=== PATIENT | female | born 1950 | race Caucasian/White ===

== ENCOUNTER 2019-07-15 18:07 | Emergency (ER) | payer OTHER ==
--- NOTE | 2019-07-15 19:10 | RAD REPORT ---
EXAM DESCRIPTION: RAD - Chest Single View - 07/15/2019 7:05 pm CLINICAL HISTORY: SOB Chest pain. COMPARISON: CHEST PA AND LAT 2 VIEW dated 11/17/2014; CHEST SINGLE VIEW dated 11/09/2014; CHEST SINGLE VIEW dated 11/08/2014; CHEST SINGLE VIEW dated 09/02/2013 FINDINGS: Portable technique limits examination quality. The lungs are grossly clear. The heart is upper limit of normal in size. No displaced fractures. IMPRESSION: No acute intrathoracic process suspected.
[2019-07-15 19:41] LABS: Absolute Lymphocytes (CBC) 2.1 K/uL (0.7-4.9); Basophils % 0.8 % (0-1.3); Lymphocytes % 33.6 % (15.3-44.8); RBC Red Blood Cell Count 4.44 M/uL (3.86-4.86)
[2019-07-15 19:47] LABS: Protime INR 0.98
[2019-07-15 20:22] LABS: ALT/SGPT 31 U/L (12-78); AST/SGOT 26 U/L (15-37); Alkaline Phosphatase 103 U/L (45-117); BUN Blood Urea Nitrogen 19 mg/dL (7-18); Bicarbonate 23 mmol/L (21-32); Bilirubin Direct 0.1 mg/dL (0-0.2); Bilirubin Total 0.5 mg/dL (0.2-1.0); Glucose Level 91 mg/dL (74-106); Magnesium 2.2 mg/dL (1.8-2.4); NT PRO-BNP 35 pg/mL (<125); Protein, Total 7.6 g/dL (6.4-8.2); Sodium Level 143 mmol/L (136-145); Troponin (Emerg Dept Use Only) < 0.02 ng/mL (0.0-0.045)
--- NOTE | 2019-07-15 20:56 | RAD REPORT ---
EXAM DESCRIPTION: CT - Head Brain Wo Cont - 07/15/2019 8:47 pm CLINICAL HISTORY: near syncope Headache, drowsiness COMPARISON: No comparisons TECHNIQUE: All CT scans are performed using dose optimization technique as appropriate and may inclu de automated exposure control or mA/KV adjustment according to patient size. FINDINGS: No intracranial hemorrhage, hydrocephalus or extra-axial fluid collection.No areas of brai n edema or evidence of midline shift. The paranasal sinuses and mastoids are clear. The calvarium is intact. IMPRESSION: No acute intracranial abnormality.
--- NOTE | 2019-07-15 22:00 | ER ---
Nurse's Notes [facility] Name: Juliet Glasgow Age: 68 yrs Sex: Female : 1950 Arrival Date: 07/15/2019 Time: 18:10 Bed 26 Private MD: Diagnosis: Near Syncopy, Dizziness Presentation: 07/15 18:19 Presenting complaint: Patient states: I WAS PREPARING DINNER WHEN I FELT LIKE I AM rv GOING TO PASS OUT SO I CALLED MY . HE GAVE ME WET CLOTH AND WATER TO DRINK. I THOUGHT I AM GETTING BETTER WHEN I FELT IT AGAIN. Transition of care: patient was not received from another setting of care. Onset of symptoms was July 15, 2019 at 17:00. Risk Assessment: Do you want to hurt yourself or someone else? Patient reports no desire to harm self or others. Initial Sepsis Screen: Does the patient meet any 2 criteria? No. Patient's initial sepsis screen is negative. Does the patient have a suspected source of infection? No. Patient's initial sepsis screen is negative. Care prior to arrival: None. 18:19 Method Of Arrival: Ambulatory rv 18:19 Acuity: WEI 3 rv Triage Assessment: 19:58 General: Appears in no apparent distress. comfortable, Behavior is calm, cooperative. mg2 Respiratory: the patient has mild shortness of breath. Respiratory: Onset: The symptoms/episode began/occurred gradually. Historical: - Allergies: 18:22 Codeine; rv - Home Meds: 18:22 None [Active]; rv - PMHx: 18:22 Hyperlipidemia; rv - PSHx: 18:22 Hysterectomy; Tonsillectomy; rv - Immunization history:: Adult Immunizations up to date, Flu vaccine is not up to date. - Social history:: Smoking status: Patient/guardian denies using tobacco. - Ebola Screening: : No symptoms or risks identified at this time. Screenin:57 Abuse screen: Denies threats or abuse. Denies injuries from another. Nutritional mg2 screening: No deficits noted. Tuberculosis screening: No symptoms or risk factors identified. Fall Risk IV access (20 points). Assessment: 19:56 General: Appears in no apparent distress. comfortable, Behavior is calm, cooperative. mg2 Pain: Denies pain. Neuro: Level of Consciousness is awake, alert, obeys commands, Oriented to person, place, time, situation. Neuro: Reports dizziness. Cardiovascular: Capillary refill < 3 seconds Patient's skin is warm and dry. Rhythm is sinus rhythm. Respiratory: Airway is patent Respiratory effort is even, unlabored, Respiratory pattern is regular, symmetrical, Breath sounds are clear bilaterally. in mediastinum, right upper lobe, left upper lobe, right middle lobe, left lower lobe and right lower lobe. GI: No signs and/or symptoms were reported involving the gastrointestinal system. : No signs and/or symptoms were reported regarding the genitourinary system. EENT: No signs and/or symptoms were reported regarding the EENT system. Derm: Skin is intact, is healthy with good turgor, Skin is pink, warm \T\ dry. normal. Musculoskeletal: Circulation, motion, and sensation intact. Capillary refill < 3 seconds. 21:00 Reassessment: Patient appears in no apparent distress at this time. Patient and/or mg2 family updated on plan of care and expected duration. Pain level reassessed. Patient is alert, oriented x 3, equal unlabored respirations, skin warm/dry/pink. 22:07 Reassessment: patient preferred to go home and follow-up with her hat checker as soon mg2 as possible. she said she feeling better right now. provider spoke to her too. Vital Signs: 18:21 BP 166 / 76; Pulse 68; Resp 16; Temp 98.4; Pulse Ox 99% on R/A; Weight 88.45 kg; Height rv 5 ft. 3 in. (160.02 cm); Pain 0/10; 19:55 BP 129 / 68; Pulse 73; Resp 18; Pulse Ox 99% on R/A; Pain 0/10; mg2 21:33 BP 134 / 69; Pulse 65; Resp 18; Pulse Ox 100% on R/A; mg2 22:08 BP 126 / 78; Pulse 63; Resp 18; Temp 98.5; Pulse Ox 100% on R/A; Pain 0/10; mg2 18:21 Body Mass Index 34.54 (88.45 kg, 160.02 cm) rv ED Course: 18:10 Patient arrived in ED. mr 18:21 Triage completed. rv 18:44 Erik Matos MD is Attending Physician. kdr 18:48 Vasiliy Mooney RN is Primary Nurse. mg2 19:04 XRAY Chest (1 view) In Process Unspecified. EDMS 19:39 Radiology exam delayed due to lab results not completed at this time. (BUN/Creatinine). kw1 19:46 Radiology exam delayed due to lab results not completed at this time. (BUN/Creatinine). kw1 19:55 Arm band placed on. mg2 19:57 Patient has correct armband on for positive identification. Bed in low position. Call mg2 light in reach. Side rails up X2. survey questionnaire designer on. Pulse ox on. NIBP on. 19:57 No provider procedures requiring assistance completed. Inserted saline lock: 22 gauge mg2 in right hand, using aseptic technique. Blood collected. 20:00 Radiology exam delayed due to lab results not completed at this time. (BUN/Creatinine). ga 20:30 Radiology exam delayed due to IV insertion attempt and/or patient not having vm2 appropriate IV at this time. 20:48 CT Head Brain wo Cont In Process Unspecified. EDMS 22:09 IV discontinued, intact, bleeding controlled, No redness/swelling at site. Pressure mg2 dressing applied. Administered Medications: No medications were administered Outcome: 21:59 Discharge ordered by . kdr 22:09 Discharged to home ambulatory, with family. mg2 22:09 Condition: stable 22:09 Discharge instructions given to patient, family, Instructed on discharge instructions, follow up and referral plans. Demonstrated understanding of instructions, follow-up care. 22:10 Patient left the ED. mg2 Signatures: Dispatcher [employer] EDMD Erik Matos MD MD kdr Rivera, Louisa mr Ortega, PeteMartha Rowe [facility] Rebeka Covarrubias kw1 Vasiliy Mooney, BRIAN TORRES mg2 Chandler Rudd RN RN rv
--- NOTE | 2019-07-15 22:01 | EDPHYS ---
Physician Documentation [facility] Name: Juliet Glasgow Age: 68 yrs Sex: Female : 1950 Arrival Date: 07/15/2019 Time: 18:10 Bed 26 Private MD: ED Physician Erik Matos HPI: 07/15 22:32 This 68 yrs old Female presents to ER via Ambulatory with complaints of kdr Shortness Of Breath, Dizziness. 22:33 The patient has experienced near-syncope, almost passed out, felt faint, felt generally kdr weak. Onset: The symptoms/episode began/occurred acutely, suddenly, just prior to arrival. Duration: The patient has had multiple episodes, Both were brief. Context: the episode(s) was witnessed, by family, occurred at home, occurred while the patient was standing, And preparing food for dinner. Associated injury: The patient did not suffer any apparent associated injury. Associated signs and symptoms: Pertinent positives: confusion, dizziness, lightheadedness, shortness of breath, Pertinent negatives: abdominal pain, agitation, ataxia, blurred vision, chest pain, combativeness, diaphoresis, diarrhea, headache, numbness, palpitations, seizure, tingling. Current symptoms: Currently, the patient is not experiencing any symptoms, the patient feels back to baseline, perhaps slight dizziness - patient does not want to mover helper her head. However, when she does, she is not significantly vertiginous. The patient has not experienced similar symptoms in the past. The patient has not recently seen a physician. Historical: - Allergies: 18:22 Codeine; rv - Home Meds: 18:22 None [Active]; rv - PMHx: 18:22 Hyperlipidemia; rv - PSHx: 18:22 Hysterectomy; Tonsillectomy; rv - Immunization history:: Adult Immunizations up to date, Flu vaccine is not up to date. - Social history:: Smoking status: Patient/guardian denies using tobacco. - Ebola Screening: : No symptoms or risks identified at this time. ROS: 22:33 Constitutional: Negative for fever, chills, and weight loss, Eyes: Negative for injury, kdr pain, redness, and discharge, ENT: Negative for injury, pain, and discharge, Neck: Negative for injury, pain, and swelling, Cardiovascular: Negative for chest pain, palpitations, and edema, Respiratory: Negative for shortness of breath, cough, wheezing, and pleuritic chest pain, Abdomen/GI: Negative for abdominal pain, nausea, vomiting, diarrhea, and constipation, Back: Negative for injury and pain, : Negative for injury, bleeding, discharge, and swelling, MS/Extremity: Negative for injury and deformity, Skin: Negative for injury, rash, and discoloration, Psych: Negative for depression, anxiety, suicide ideation, homicidal ideation, and hallucinations, Allergy/Immunology: Negative for hives, rash, and allergies, Endocrine: Negative for neck swelling, polydipsia, polyuria, polyphagia, and marked weight changes, Hematologic/Lymphatic: Negative for swollen nodes, abnormal bleeding, and unusual bruising. 22:33 Neuro: Positive for dizziness, near syncope, Negative for altered mental status, gait disturbance, headache, hearing loss, loss of consciousness, numbness, seizure activity, speech changes, tingling, tinnitus, tremor, visual changes. Exam: 22:33 Constitutional: This is a well developed, well nourished patient who is awake, alert, kdr and in no acute distress. Head/Face: Normocephalic, atraumatic. Eyes: Pupils equal round and reactive to light, extra-ocular motions intact. Lids and lashes normal. Conjunctiva and sclera are non-icteric and not injected. Cornea within normal limits. Periorbital areas with no swelling, redness, or edema. Neck: Trachea midline, no thyromegaly or masses palpated, and no cervical lymphadenopathy. Supple, full range of motion without nuchal rigidity, or vertebral point tenderness. No Meningismus. Chest/axilla: Normal chest wall appearance and motion. Nontender with no deformity. No lesions are appreciated. Cardiovascular: Regular rate and rhythm with a normal S1 and S2. No gallops, murmurs, or rubs. Normal PMI, no JVD. No pulse deficits. Respiratory: Lungs have equal breath sounds bilaterally, clear to auscultation and percussion. No rales, rhonchi or wheezes noted. No increased work of breathing, no retractions or nasal flaring. Abdomen/GI: Soft, non-tender, with normal bowel sounds. No distension or tympany. No guarding or rebound. No evidence of tenderness throughout. Back: No spinal tenderness. No costovertebral tenderness. Full range of motion. Skin: Warm, dry with normal turgor. Normal color with no rashes, no lesions, and no evidence of cellulitis. MS/ Extremity: Pulses equal, no cyanosis. Neurovascular intact. Full, normal range of motion. Neuro: Awake and alert, GCS 15, oriented to person, place, time, and situation. Cranial nerves II-XII grossly intact. Motor strength 5/5 in all extremities. Sensory grossly intact. Cerebellar exam normal. Normal gait. Psych: Awake, alert, with orientation to person, place and time. Behavior, mood, and affect are within normal limits. Vital Signs: 18:21 BP 166 / 76; Pulse 68; Resp 16; Temp 98.4; Pulse Ox 99% on R/A; Weight 88.45 kg; Height rv 5 ft. 3 in. (160.02 cm); Pain 0/10; 19:55 BP 129 / 68; Pulse 73; Resp 18; Pulse Ox 99% on R/A; Pain 0/10; mg2 21:33 BP 134 / 69; Pulse 65; Resp 18; Pulse Ox 100% on R/A; mg2 22:08 BP 126 / 78; Pulse 63; Resp 18; Temp 98.5; Pulse Ox 100% on R/A; Pain 0/10; mg2 18:21 Body Mass Index 34.54 (88.45 kg, 160.02 cm) rv MDM: 21:59 Patient medically screened. kdr 22:00 Data reviewed: vital signs, nurses notes. ED course: S/w patient had all kdr findings and my recommendation that she be admitted for cardiac monitoring. The patient was resistant to admission and declined offer. Stated that she felt back to normal now and would return of follow-up if she continued to have any symptoms. The patient was present and together they determined that she would rather go home and follow-up. 07/15 18:44 Order name: Basic Metabolic Panel; Complete Time: 21:10 kdr 07/15 18:44 Order name: CBC with Diff; Complete Time: 21:10 kdr 07/15 18:44 Order name: LFT's; Complete Time: 21:10 kdr 07/15 18:44 Order name: Magnesium; Complete Time: 21:10 kdr 07/15 18:44 Order name: NT PRO-BNP; Complete Time: 21:10 kdr 07/15 18:44 Order name: PT-INR; Complete Time: 21: [facility] 07/15 18:44 Order name: Troponin (emerg Dept Use Only); Complete Time: 21: [facility] 07/15 18:44 Order name: XRAY Chest (1 view); Complete Time: 21: [facility] 07/15 18:44 Order name: EKG; Complete Time: 18:45 [facility] 07/15 18:44 Order name: Cardiac monitoring; Complete Time: 19: [facility] 07/15 18:44 Order name: EKG - Nurse/Tech; Complete Time: 19:27 [facility] 07/15 18:44 Order name: IV Saline Lock; Complete Time: 19: [facility] 07/15 19:36 Order name: CT Head Brain wo Cont; Complete Time: : [facility] 07/15 18:44 Order name: Labs collected and sent; Complete Time: 19:27 [facility] 07/15 18:44 Order name: O2 Per Protocol; Complete Time: 19: [facility] 07/15 18:44 Order name: O2 Sat Monitoring; Complete Time: 19: [facility] Administered Medications: No medications were administered Disposition: 07/15/19 21:59 Discharged to Home. Impression: Near Syncopy, Dizziness. - Condition is Stable. - Discharge Instructions: Near-Syncope, [id number], Dizziness, [id number]. - Medication Reconciliation Form, Thank You Letter form. - Follow up: Private Physician; When: 2 - 3 days; Reason: If symptoms return, Further diagnostic work-up, Recheck today's complaints, Continuance of care, Re-evaluation by your physician. - Problem is new. - Symptoms are resolved. Signatures: Dispatcher [employer] EDDE Erik Matos MD MD [facility] Vasiliy Mooney RN RN mg2 Chandler Rudd RN RN rv Corrections: (The following items were deleted from the chart) 22:10 21:59 07/15/2019 21:59 Discharged to Home. Impression: Near Syncopy, Dizziness. mg2 Condition is Stable. Forms are Medication Reconciliation Form, Thank You Letter, Antibiotic Education, Prescription Opioid Use. Follow up: Private Physician; When: 2 - 3 days; Reason: If symptoms return, Further diagnostic work-up, Recheck today's complaints, Continuance of care, Re-evaluation by your physician. Problem is new. Symptoms are resolved. kdr
[2019-07-15 22:36] VITALS: O2SAT 100
[2019-07-15 22:37] VITALS: BP 126/78; TEMP 98.5
--- NOTE | 2019-07-16 07:44 | EKG ---
Test Date: 2019-07-15 Test Time: 19:22:49 [place] [employer]: MEASUREMENT RESULTS: Intervals: Rate: 62 MO: 134 QRSD: 78 QT: 426 QTc: 432 [place]: P: 70 MO: 134 QRS: 16 T: 25 INTERPRETIVE STATEMENTS: Normal sinus rhythm Cannot rule out Anterior infarct, age undetermined Abnormal ECG Compared to ECG 11/09/2014 06:04:05 Myocardial infarct finding now present ST (T wave) deviation no longer present Electronically Signed On 07-16-19 07:43:33 [facility] CONSULTANT by Paulino Marie
== END 2019-07-15 22:10 | disposition home or self-care (01) ==
LOC: ER 18:07
DX: R55 Syncope and collapse (principal); E78.5 Hyperlipidemia, unspecified; Z88.5 Allergy status to narcotic agent
CPT/HCPCS: 36415; 70450; 71045; 80048; 80076; 83735; 83880; 84484; 85025; 85610; 93005; 99284

== ENCOUNTER 2020-11-09 19:18 | Emergency (ER) | payer OTHER ==
--- OUTSIDE RECORDS SUMMARY | 2020-11-09 19:21 | XMS REPORT | Continuity of Care Document ---
:[address] [facility] t Address [address] [place] [address] Care Team Providers Name Role Phone Nurse, Pob Immunization Attending Clinician Unavailable Provider, Urgent Care Attending Clinician Unavailable Tanisha Chow Attending Clinician Doctor Unassigned, Name Attending Clinician Unavailable Cordelia SHERIDAN, L Attending Clinician James SHERIDAN CJenifer Attending Clinician Problems This patient has no known problems. Allergies, Adverse Reactions, Alerts This patient has no known allergies or adverse reactions. Medications This patient has no known medications. Procedures This patient has no known procedures. Encounters Start End Encounter Admission Attending Care Care Encounter Source Date/Time Date/Time Type Type Clinicians Facility Department ID 2020-09-24 2020-09-24 Telephone NurseSushila [id number] 00:00:00 00:00:00 Pob IZZY [id number] [facility] [id number] n [phone] [id number] 2020-09-04 2020-09-04 Urgent Provider, [facility] [id number] 12:06:47 12:26:47 Care [facility] [id number] Care [place] [id number] Professio [phone] nal [address] 2019-12-19 2019-12-19 Letter ADALGISA Chow [id number] 00:00:00 00:00:00 (Out) Rob MAGANA [id number] H[facility]PITAL [id number] 2019-12-09 2019-12-09 Patient Doctor [facility] [id number] 00:00:00 00:00:00 Secure Msg Unassigned, HEALTH [id number] [place] [facility] [id number] 2019-11-21 2019-11-21 Telephone [facility] [id number] 00:00:00 00:00:00 Bhavin [facility] [id number] Surgical [id number] Specialti [id number] [address] [place] 2019-11-19 2019-11-19 Office [facility] [id number] 14:08:31 14:44:41 Visit Bhavin [facility] [id number] Surgical [id number] Specialti [phone] [address] [place] 2019-10-15 2019-10-15 Office [place] [facility] [id number] 07:35:03 07:55:03 Visit , [place] [facility] [id number] [facility]. [facility] [id number] Results This patient has no known results.
[2020-11-09 20:31] LABS: Absolute Lymphocytes (CBC) 2.4 K/uL (0.7-4.9); Basophils % 0.8 % (0-1.3); Hematocrit 38.1 % (36.0-45.0); Lymphocytes % 30.3 % (15.3-44.8); MPV 7.3 fL (7.6-11.3)
[2020-11-09 20:33] LABS: Protime INR 1.01
--- NOTE | 2020-11-09 20:44 | RAD REPORT ---
EXAM DESCRIPTION: CT - Head Brain Wo Cont - 11/09/2020 8:27 pm CLINICAL HISTORY: Dizziness;Numbness COMPARISON: Head CT Wo Cont dated 07/15/2019 TECHNIQUE: Axial 5 mm thick images of the head were obtained without IV contrast. All CT scans are performed using dose optimization technique as appropriate and may include automated exposure control or mA/KV adjustment according to patient size. FINDINGS: No intracranial hemorrhage, mass, edema or shift of mid-line structures. No acute infarcti on changes seen. No abnormal extra-axial fluid collections. Ventricles are normal. No significant atr ophy or chronic ischemic changes evident. Mastoid air cells and visualized portions of the paranasal sinuses are clear. No acute bony findings. No significant change from comparison. IMPRESSION: Negative non-contrast CT head examination.
[2020-11-09 21:01] LABS: ALT/SGPT 27 U/L (12-78); AST/SGOT 15 U/L (15-37); Albumin 3.6 g/dL (3.4-5.0); Alkaline Phosphatase 104 U/L (45-117); BUN Blood Urea Nitrogen 23 mg/dL (7-18); Bicarbonate 31 mmol/L (21-32); Bilirubin Direct 0.2 mg/dL (0-0.2); Bilirubin Total 0.5 mg/dL (0.2-1.0); Glucose Level 99 mg/dL (74-106); Magnesium 2.2 mg/dL (1.8-2.4); NT PRO-BNP 38 pg/mL (<125); Potassium 3.8 mmol/L (3.5-5.1); Protein, Total 7.1 g/dL (6.4-8.2); Sodium Level 143 mmol/L (136-145); Troponin (Emerg Dept Use Only) < 0.02 ng/mL (0.0-0.045)
--- NOTE | 2020-11-09 21:52 | ER ---
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 ll1 Throat area feels thick, painful, and tender to touch. Upper chest even feels tender to touch. Coronavirus screen: Client denies travel out of the [place] in the last 14 days. At this time, the client does not indicate any symptoms associated with coronavirus-19. Ebola Screen: Patient denies travel to an Ebola-affected area in the 21 days before illness onset. Initial Sepsis Screen: Does the patient meet any 2 criteria? No. Patient's initial sepsis screen is negative. Does the patient have a suspected source of infection? No. Patient's initial sepsis screen is negative. Risk Assessment: Do you want to hurt yourself or someone else? Patient reports no desire to harm self or others. Onset of symptoms was November 09, 2020. 19:25 Method Of Arrival: Ambulatory ll1 19:25 Acuity: WEI 3 ll1 Historical: - Allergies: 19:27 Codeine; ll1 - PMHx: 19:27 Hyperlipidemia; ll1 - PSHx: 19:27 Hysterectomy; Tonsillectomy; rotator cuff both shoulders; ll1 - Immunization history:: Flu vaccine is up to date. - Social history:: Smoking status: Patient denies any tobacco usage or history of. Screenin:45 Abuse screen: Denies threats or abuse. Denies injuries from another. Nutritional wh screening: No deficits noted. Tuberculosis screening: No symptoms or risk factors identified. VAN Screening: Arm Drift: Patient shows no arm weakness. Visual Disturbance: No visual disturbance noted. Aphasia: No aphasia noted. Neglect: No neglect noted. Patient has been NPO before screening. The patient is alert, able to follow commands. The patient does not exhibit slurred or garbled speech The patient is not exhibiting difficulty speaking. The patient does not exhibit difficulty understanding words. The patient is able to swallow own secretions with no drooling or need for suction. Patient tolerated one teaspoon of water. No drooling, immediate coughing, gurgling, or clearing of the throat was noted. The patient tolerated 90mL of water. No drooling, immediate coughing, gurgling, or clearing of the throat was noted. The patient passed the bedside swallow screening. Oral medications may be given as ordered. Contact Physician for further diet orders. Fall Risk None identified. Assessment: 19:45 General: Appears in no apparent distress. Behavior is calm, cooperative, appropriate wh for age. Pain: Denies pain. Neuro: Level of Consciousness is awake, alert, obeys commands, Oriented to person, place, time, situation, Appropriate for age Computer Numerical Control Programmer are equal bilaterally Moves all extremities. Gait is steady, Speech is normal, Facial symmetry appears normal, Numbness in face, neck and chest Reports numbness in face, neck and chest. Cardiovascular: Heart tones S1 S2 Rhythm is sinus rhythm. Respiratory: Airway is patent Respiratory effort is even, unlabored, Respiratory pattern is regular, symmetrical, Breath sounds are clear bilaterally. GI: Abdomen is flat, non-distended. : No signs and/or symptoms were reported regarding the genitourinary system. EENT: No signs and/or symptoms were reported regarding the EENT system. Derm: Skin is intact, is healthy with good turgor, Skin is pink, warm \T\ dry. normal. Musculoskeletal: Circulation, motion, and sensation intact. 21:30 Reassessment: Patient appears in no apparent distress at this time. No changes from previously documented assessment. Patient and/or family updated on plan of care and expected duration. Pain level reassessed. Patient is alert, oriented x 3, equal unlabored respirations, skin warm/dry/pink. Vital Signs: 19:25 BP 158 / 94; Pulse 79; Resp 17; Temp 98.0; Pulse Ox 99% ; Weight 88.45 kg; Height 5 ft. ll1 3 in. (160.02 cm); Pain 2/10; 20:30 BP 135 / 67; Pulse 79; Resp 18; Pulse Ox 96% on R/A; wh 21:45 BP 134 / 55; Pulse 81; Resp 18; Pulse Ox 97% on R/A; wh 19:25 Body Mass Index 34.54 (88.45 kg, 160.02 cm) ll1 NIH Stroke Scale Scores: 19:45 NIHSS Score: 0 20:33 NIHSS Score: 0 [facility] ED Course: 19:20 Patient arrived in ED. cl3 19:27 Triage completed. ll1 19:27 Arm band placed on Patient placed in an exam room, on a stretcher. ll1 19:38 Guera Castanon RN is Primary Nurse. 19:45 Javier Nielsen MD is Attending Physician. 7 19:45 Patient has correct armband on for positive identification. Placed in gown. Bed in low wh position. Call light in reach. Side rails up X 1. four slide machine operator on. Pulse ox on. NIBP on. 20:00 No provider procedures requiring assistance completed. Inserted saline lock: 20 gauge wh in right antecubital area, using aseptic technique. Blood collected. 21:54 XRAY Chest (1 view) In Process Unspecified. EDMS 22:07 IV discontinued, intact, bleeding controlled, No redness/swelling at site. wh Administered Medications: No medications were administered Outcome: 22:06 AMA AMA form signed 22:06 Condition: stable 22:06 Discharge instructions given to patient, Instructed on discharge instructions, follow up and referral plans. POC Demonstrated understanding of instructions, follow-up care, POC 22:07 Patient left the ED. NIH Stroke Scale - NIH Stroke Score Date: 11/09/2020 Time: 19:45 Total Score = 0 1a. Level of Consciousness (LOC) - 0(Alert) 1b. Level of Consciousness (LOC) (Year \T\ Age) - 0(Both) 1c. LOC Commands (Open \T\ Closes Eyes/Cooker Casing) - 0(Both) 2. Best Gaze (Lateral Gaze Paresis) - 0(Normal) 3. Visual Field Loss - 0(No visual loss) 4. Facial Palsy - 0(Normal) 5a. Left Arm: Motor (10-second hold) - 0(No drift) 5b. Right Arm: Motor (10-second hold) - 0(No drift) 6a. Left Leg: Motor (5-second hold - always test supine) - 0(No drift) 6b. Right Leg: Motor (5-second hold - always test supine) - 0(No drift) 7. Limb Ataxia (finger/nose \T\ heel/woodson - test with eyes open) - 0(Absent) 8. Sensory Loss (pinprick arms/legs/face) - 0(Normal) 9. Best Language: Aphasia (description/naming/reading) - 0(No aphasia) 10. Dysarthria (speech clarity - read or repeat words) - 0(Normal) 11. Extinction and Inattention (visual/tactile/auditory/spatial/personal) - 0(No abnormality) Initials: NIH Stroke Scale - NIH Stroke Score Date: 11/09/2020 Time: 20:33 Total Score = 0 1a. Level of Consciousness (LOC) - 0(Alert) 1b. Level of Consciousness (LOC) (Year \T\ Age) - 0(Both) 1c. LOC Commands (Open \T\ Closes Eyes/Cooker Casing) - 0(Both) 2. Best Gaze (Lateral Gaze Paresis) - 0(Normal) 3. Visual Field Loss - 0(No visual loss) 4. Facial Palsy - 0(Normal) 5a. Left Arm: Motor (10-second hold) - 0(No drift) 5b. Right Arm: Motor (10-second hold) - 0(No drift) 6a. Left Leg: Motor (5-second hold - always test supine) - 0(No drift) 6b. Right Leg: Motor (5-second hold - always test supine) - 0(No drift) 7. Limb Ataxia (finger/nose \T\ heel/woodson - test with eyes open) - 0(Absent) 8. Sensory Loss (pinprick arms/legs/face) - 0(Normal) 9. Best Language: Aphasia (description/naming/reading) - 0(No aphasia) 10. Dysarthria (speech clarity - read or repeat words) - 0(Normal) 11. Extinction and Inattention (visual/tactile/auditory/spatial/personal) - 0(No abnormality) Initials: 7 Signatures: Dispatcher [employer] Guera Whitaker RN RN Suly Nicole cl3 Ayla Nicole RN RN ll1 Javier Nielsen MD MD [facility]
--- NOTE | 2020-11-09 21:52 | EDPHYS ---
Physician Documentation [facility] Name: Juliet Glasgow Age: 70 yrs Sex: Female : 1950 Arrival Date: 11/09/2020 Time: 19:20 Bed 18 Private MD: ED Physician Javier Nielsen HPI: 11/09 20:33 This 70 yrs old Female presents to ER via Ambulatory with complaints of mh7 Numbness Of Face, Difficulty Swallowing. 20:33 The patient's problem is reported as paresthesias, in right side of face, in left side mh7 of face, syncope, dizziness, near syncope, chest pain, fullness of throat. Onset: The symptoms/episode began/occurred today, at 19:05. Duration: The episode is continuous. Context: the episode(s) was witnessed, by family, , symptoms became apparent on November 09, 2020, at 19:05. occurred at home, occurred while the patient was standing, Possible contributing factors include:. The symptoms are alleviated by nothing. The symptoms are aggravated by nothing. Associated signs and symptoms: Pertinent positives: chest pain, dizziness, lightheadedness, numbness, tingling, throat pressure sensation, Pertinent negatives: abdominal pain, agitation, ataxia, blurred vision, combativeness, confusion, diaphoresis, diarrhea, headache, nausea, palpitations, seizure, shortness of breath, vertigo, vomiting, weakness. Severity of symptoms: At their worst the symptoms were moderate just prior to arrival, today, in the emergency department the symptoms have improved markedly. Patient's baseline: Neuro: alert and fully oriented, Motor: no deficits, Ambulation: walks without assistance, Speech: normal. Patients states multiple symptoms that began simultaneously including chest pain, facial numbness to both cheeks, dizziness with lightheaded feeling as if she might pass out, throat pressure. Denies headache, abdominal pain, nausea, vomiting, weakness, visual disturbances, fever, cough.. Historical: - Allergies: 19:27 Codeine; ll1 - PMHx: 19:27 Hyperlipidemia; ll1 - PSHx: 19:27 Hysterectomy; Tonsillectomy; rotator cuff both shoulders; ll1 - Immunization history:: Flu vaccine is up to date. - Social history:: Smoking status: Patient denies any tobacco usage or history of. ROS: 20:33 Constitutional: Negative for fever, chills, and weight loss, Eyes: Negative for injury, mh7 pain, redness, and discharge, Neck: Negative for injury, pain, and swelling, Respiratory: Negative for shortness of breath, cough, wheezing, and pleuritic chest pain, Abdomen/GI: Negative for abdominal pain, nausea, vomiting, diarrhea, and constipation, Back: Negative for injury and pain, : Negative for injury, bleeding, discharge, and swelling, MS/Extremity: Negative for injury and deformity, Skin: Negative for injury, rash, and discoloration, Psych: Negative for depression, anxiety, suicide ideation, homicidal ideation, and hallucinations, Allergy/Immunology: Negative for hives, rash, and allergies, Endocrine: Negative for neck swelling, polydipsia, polyuria, polyphagia, and marked weight changes, Hematologic/Lymphatic: Negative for swollen nodes, abnormal bleeding, and unusual bruising. Exam: 20:33 Constitutional: This is a well developed, well nourished patient who is awake, alert, mh7 and in no acute distress. Head/Face: Normocephalic, atraumatic. Eyes: Pupils equal round and reactive to light, extra-ocular motions intact. Lids and lashes normal. Conjunctiva and sclera are non-icteric and not injected. Cornea within normal limits. Periorbital areas with no swelling, redness, or edema. ENT: Nares patent. No nasal discharge, no septal abnormalities noted. Tympanic membranes are normal and external auditory canals are clear. Oropharynx with no redness, swelling, or masses, exudates, or evidence of obstruction, uvula midline. Mucous membranes moist. Neck: Trachea midline, no thyromegaly or masses palpated, and no cervical lymphadenopathy. Supple, full range of motion without nuchal rigidity, or vertebral point tenderness. No Meningismus. Chest/axilla: Normal chest wall appearance and motion. Nontender with no deformity. No lesions are appreciated. Cardiovascular: Regular rate and rhythm with a normal S1 and S2. No gallops, murmurs, or rubs. Normal PMI, no JVD. No pulse deficits. Respiratory: Lungs have equal breath sounds bilaterally, clear to auscultation and percussion. No rales, rhonchi or wheezes noted. No increased work of breathing, no retractions or nasal flaring. Abdomen/GI: Soft, non-tender, with normal bowel sounds. No distension or tympany. No guarding or rebound. No evidence of tenderness throughout. Back: No spinal tenderness. No costovertebral tenderness. Full range of motion. Skin: Warm, dry with normal turgor. Normal color with no rashes, no lesions, and no evidence of cellulitis. MS/ Extremity: Pulses equal, no cyanosis. Neurovascular intact. Full, normal range of motion. Neuro: Awake and alert, GCS 15, oriented to person, place, time, and situation. Cranial nerves II-XII grossly intact. Motor strength 5/5 in all extremities. Sensory grossly intact. Cerebellar exam normal. Normal gait. Psych: Awake, alert, with orientation to person, place and time. Behavior, mood, and affect are within normal limits. 21:52 Radiologist reports: No acute findings mh7 Vital Signs: 19:25 BP 158 / 94; Pulse 79; Resp 17; Temp 98.0; Pulse Ox 99% ; Weight 88.45 kg; Height 5 ft. ll1 3 in. (160.02 cm); Pain 2/10; 20:30 BP 135 / 67; Pulse 79; Resp 18; Pulse Ox 96% on R/A; wh 21:45 BP 134 / 55; Pulse 81; Resp 18; Pulse Ox 97% on R/A; wh 19:25 Body Mass Index 34.54 (88.45 kg, 160.02 cm) ll1 NIH Stroke Scale Scores: 19:45 NIHSS Score: 0 wh 20:33 NIHSS Score: 0 7 MDM: 21:48 Differential diagnosis: CVA, TIA, metabolic disorder, drug effects, Chest pain, Near mh7 Syncope. Data reviewed: vital signs, nurses notes, lab test result(s), cardiac enzymes, CBC, electrolytes, EKG, radiologic studies, CT scan, plain films. Data interpreted: Pulse oximetry: on room air is 99 %. Interpretation: normal. Counseling: I had a detailed discussion with the patient and/or guardian regarding: the historical points, exam findings, and any diagnostic results supporting the discharge/admit diagnosis, the presence of at least one elevated blood pressure reading (>120/80) during this emergency department visit, lab results, radiology results, the need for further work-up and treatment in the hospital. Response to treatment: the patient's symptoms have resolved after treatment, the patient's blood pressure is in an acceptable range, mental status has returned to baseline, the patient no longer shows bradycardia, the patient is not short of breath, the patient is not tachycardic, the patient's pain is gone, the patient's temperature has normalized. Refusal of service: The patient/guardian displays adequate decision making capability and despite a detailed discussion of alternatives, benefits, risks, and consequences refuses: Admission to the hospital for further work-up and treatment, Medications. 21:51 Patient medically screened. [facility] 11/09 20:02 Order name: Basic Metabolic Panel [facility] 11/09 20:02 Order name: CBC with Diff [facility] 11/09 20:02 Order name: LFT's [facility] 11/09 20:02 Order name: Magnesium [facility] 11/09 20:02 Order name: NT PRO-BNP [facility] 11/09 20:02 Order name: PT-INR [facility] 11/09 20:02 Order name: Troponin (emerg Dept Use Only) [facility] 11/09 20:49 Order name: CBC with Automated Diff; Complete Time: 21:15 [facility] 11/09 20:50 Order name: Protime (+INR); Complete Time: 21:15 [facility] 11/09 21:01 Order name: Basic Metabolic Panel; Complete Time: 21:15 [facility] 11/09 21:01 Order name: Liver (Hepatic) Function; Complete Time: 21:15 [facility] 11/09 21:01 Order name: Troponin (Emerg Dept Use Only); Complete Time: 21:15 [facility] 11/09 21:01 Order name: NT PRO-BNP; Complete Time: 21:15 [facility] 11/09 21:01 Order name: Magnesium; Complete Time: 21:15 [facility] 11/09 20:02 Order name: XRAY Chest (1 view) [facility] 11/09 20:02 Order name: EKG; Complete Time: 20:03 [facility] 11/09 20:02 Order name: Cardiac monitoring; Complete Time: 20:31 [facility] 11/09 20:02 Order name: EKG - Nurse/Tech; Complete Time: 20:31 [facility] 11/09 20:02 Order name: IV Saline Lock; Complete Time: 20: [facility] 11/09 20:02 Order name: Labs collected and sent; Complete Time: 20:32 [facility] 11/09 20:02 Order name: O2 Per Protocol; Complete Time: 20:32 [facility] 11/09 20:02 Order name: O2 Sat Monitoring; Complete Time: 20:32 [facility] 11/09 20:03 Order name: CT Head Brain wo Cont [facility] 11/09 20:44 Order name: CT; Complete Time: 21:15 EDMS Administered Medications: No medications were administered Disposition: 11/09/20 21:51 Patient has left against medical advice. Impression: Chest pain, unspecified, Paresthesia of skin, Dizziness and giddiness, Pain in throat and chest. - Patients states they are going to Home. - Condition is Stable. - Discharge Instructions: Paresthesia, Nonspecific Chest Pain, [id number], Dizziness, [id number]. Follow up: Private Physician; When: 24 Hours; Reason: Worsening of condition, Recheck today's complaints, Continuance of care, Re-evaluation by your physician. - Problem is new. - Symptoms have improved. NIH Stroke Scale - NIH Stroke Score Date: 11/09/2020 Time: 19:45 Total Score = 0 1a. Level of Consciousness (LOC) - 0(Alert) 1b. Level of Consciousness (LOC) (Year \T\ Age) - 0(Both) 1c. LOC Commands (Open \T\ Closes Eyes/Workforce Consultant) - 0(Both) 2. Best Gaze (Lateral Gaze Paresis) - 0(Normal) 3. Visual Field Loss - 0(No visual loss) 4. Facial Palsy - 0(Normal) 5a. Left Arm: Motor (10-second hold) - 0(No drift) 5b. Right Arm: Motor (10-second hold) - 0(No drift) 6a. Left Leg: Motor (5-second hold - always test supine) - 0(No drift) 6b. Right Leg: Motor (5-second hold - always test supine) - 0(No drift) 7. Limb Ataxia (finger/nose \T\ heel/woodson - test with eyes open) - 0(Absent) 8. Sensory Loss (pinprick arms/legs/face) - 0(Normal) 9. Best Language: Aphasia (description/naming/reading) - 0(No aphasia) 10. Dysarthria (speech clarity - read or repeat words) - 0(Normal) 11. Extinction and Inattention (visual/tactile/auditory/spatial/personal) - 0(No abnormality) Initials: NIH Stroke Scale - NIH Stroke Score Date: 11/09/2020 Time: 20:33 Total Score = 0 1a. Level of Consciousness (LOC) - 0(Alert) 1b. Level of Consciousness (LOC) (Year \T\ Age) - 0(Both) 1c. LOC Commands (Open \T\ Closes Eyes/Workforce Consultant) - 0(Both) 2. Best Gaze (Lateral Gaze Paresis) - 0(Normal) 3. Visual Field Loss - 0(No visual loss) 4. Facial Palsy - 0(Normal) 5a. Left Arm: Motor (10-second hold) - 0(No drift) 5b. Right Arm: Motor (10-second hold) - 0(No drift) 6a. Left Leg: Motor (5-second hold - always test supine) - 0(No drift) 6b. Right Leg: Motor (5-second hold - always test supine) - 0(No drift) 7. Limb Ataxia (finger/nose \T\ heel/woodson - test with eyes open) - 0(Absent) 8. Sensory Loss (pinprick arms/legs/face) - 0(Normal) 9. Best Language: Aphasia (description/naming/reading) - 0(No aphasia) 10. Dysarthria (speech clarity - read or repeat words) - 0(Normal) 11. Extinction and Inattention (visual/tactile/auditory/spatial/personal) - 0(No abnormality) Initials: [facility] Signatures: Dispatcher [employer] EDMS Guera Castanon RN RN Ayla Nicole RN RN [facility] Javier Nielsen MD MD 7 Corrections: (The following items were deleted from the chart) 22:07 21:51 11/09/2020 21:51 Patients has left against medical advice. Impression: Chest pain, unspecified; Paresthesia of skin; Dizziness and giddiness; Pain in throat and chest. Patient states they are going to Home. Condition is Stable. Follow up: Private Physician; When: 24 Hours; Reason: Worsening of condition, Recheck today's complaints, Continuance of care, Re-evaluation by your physician. Problem is new. Symptoms have improved. [facility]
--- NOTE | 2020-11-09 22:43 | RAD REPORT ---
EXAM DESCRIPTION: RAD - Chest Single View - 11/09/2020 8:44 pm CLINICAL HISTORY: CHEST PAIN COMPARISON: Portable July 2019 TECHNIQUE: AP portable chest image was obtained 11/09/2020 8:44 pm . FINDINGS: No peripheral mass consolidation. No failure or volume overload. Interstitial pattern is s imilar to comparison. Heart and vasculature are normal. No measurable pleural effusion and no pneumot horax. No acute bony abnormality seen. No acute aortic findings suspected. IMPRESSION: No acute cardiopulmonary process. No significant change from comparison.
[2020-11-10 15:55] VITALS: TEMP 98
[2020-11-10 15:57] VITALS: BP 134/55; O2SAT 97
--- NOTE | 2020-11-11 05:16 | EKG ---
Test Date: 2020-11-09 Test Time: 20:11:38 Banana Carrier: MADELNIE MEASUREMENT RESULTS: Intervals: Rate: 83 LA: 154 QRSD: 86 QT: 372 QTc: 437 [place]: P: 67 LA: 154 QRS: 57 T: 51 INTERPRETIVE STATEMENTS: Sinus rhythm with occasional premature ventricular complexes Otherwise normal ECG Compared to ECG 07/15/2019 19:22:49 Ventricular premature complex(es) now present Myocardial infarct finding no longer present Electronically Signed On 11-11-20 05:11:48 ELEVATOR OPERATOR FREIGHT by Kalin Alonzo
== END 2020-11-09 22:07 | disposition left against medical advice (07) ==
LOC: ER 19:18
DX: R07.9 Chest pain, unspecified (principal); R42 Dizziness and giddiness; R07.0 Pain in throat; E78.5 Hyperlipidemia, unspecified; Z88.5 Allergy status to narcotic agent
CPT/HCPCS: 36415; 70450; 71045; 80048; 80076; 83735; 83880; 84484; 85025; 85610; 93005; 99284

== ENCOUNTER 2021-12-19 08:15 | Emergency (ER) | payer OTHER ==
--- OUTSIDE RECORDS SUMMARY | 2021-12-19 08:20 | XMS REPORT | Continuity of Care Document ---
:1950 Author Organization [facility] t Address [address] [place] [address] Care Team Providers Name Role Phone KAILEY Attending Clinician Unavailable CHRISTA Attending Clinician Unavailable Bill VERNON Attending Clinician Unavailable Nurse, Pob Immunization Attending Clinician Unavailable Provider, Urgent Care Attending Clinician Unavailable VALDO Attending Clinician Unavailable Tanisha Chow Attending Clinician Doctor Unassigned, Name Attending Clinician Unavailable Cordelia SHERIDAN, L Attending Clinician Troy STOREY Attending Clinician Unavailable James SHERIDAN, C. Attending Clinician Payers Payer Name Policy Type Policy Number Effective Date Expiration Date [facility] [id number] 2020 MEDICARE ADV HMO 00:00:00 [employer] MEDICARE [id number] 2018 00:00:00 Problems Condition Condition Condition Status Onset Resolution Last Treating Co mments Source Name Details Category Date Date Treatment Clinician Date No known No known Disease [facility] problems problems of Medicin e Allergies, Adverse Reactions, Alerts Allergy Allergy Status Severity Reaction(s) Onset Inactive Treating Comm ents Source Name Type Date Date Clinician CODEINE DRUG Active Hallucinates Uni vers INGREDI 10-15 ity of 00:00: [address] Codeine Propensi Active [facility] ty to 10-15 [place] adverse 00:00: of reaction 00 Medicin s to e drug NO KNOWN Drug Active [facility] ALLERGIE Class ity of S [facility] Social History Social Habit Start Date Stop Date Quantity Comments Source Sex Assigned At [facility] Smoking Status Start Date Stop Date Source Never smoker [facility] o f Medicine Medications Ordered Filled Start Stop Current Ordering Indication Dosage Frequency Signature Comments Components Source Medication Medication Date Date Medication? Clinician (SIG) Name Name ibuprofen Yes 400mg Take 400 [place] nona (MOTRIN) 2-12 mg by [place] 400 MG 14:34: mouth of tablet 32 every 6 Medicin hours as e needed for Pain. atorvastati 2019-0 Yes 40mg Take 40 mg Solo n (LIPITOR) 2-12 by mouth Marleny ege 40 MG 14:34: daily. of tablet 32 Medicin e doxycycline 2019-0 Yes 20mg Take 1 Tab [facility] (PERIOSTAT) 2-12 by mouth Marleny ege 20 MG 00:00: two times of tablet 00 daily. Medicin e Procedures Procedure Date / Time Performed Performing Clinician [facility] lj CORNEAL TOPOGRAPHY - 2019-10-15 15:30:30 [place] Ramirez [facility] - BOTH EYES C. Medicine Plan of Care Planned Activity Planned Date Details Comments Source Future Scheduled Test COLON CANCER SCREENING: [facility] COLONOSCOPY [code = Medicine COLON CANCER SCREENING: COLONOSCOPY] Future Scheduled Test MAMMOGRAM ANNUAL [code [facility] = MAMMOGRAM ANNUAL] Medicine Future Scheduled Test TETANUS SHOT (ADULT) [facility] [code = TETANUS SHOT Medicin e (ADULT)] Future Scheduled Test HEPATITIS C SCREENING [facility] [code = HEPATITIS C Medicine SCREENING] Future Scheduled Test FALL SCREEN [code = [facility] FALL SCREEN] Medicine Future Scheduled Test OSTEOPOROSIS SCREENING [facility] [code = OSTEOPOROSIS Medicin e SCREENING] Future Scheduled Test PNEUMOVAX >=65 (PPSV23) [facility] [code = PNEUMOVAX >=65 Medic ine (PPSV23)] Future Scheduled Test PREVNAR >= 65 (PCV13) [facility] [code = PREVNAR >= 65 Medici ne (PCV13)] Future Scheduled Test MEDICARE AWV (Initial) [facility] [code = MEDICARE AWV Medicin e (Initial)] Future Scheduled Test FLU VACCINE > 6 MONTHS [facility] [code = FLU VACCINE > 6 Medi cine MONTHS] Encounters Start End Encounter Admission Attending Care Care Encounter Source Date/Time Date/Time Type Type Clinicians Facility Department ID 2021-07-12 2021-07-12 Outpatient KAILEY [facility] [id number] 00:00:00 00:00:00 SILVIA 128 [facility] i 2021-07-12 2021-07-12 Outpatient KAILEY, [facility] [id number] 00:00:00 00:00:[address] SILV[address] 2020-11-25 2020-11-25 Outpatient CHRISTA, [facility] [id number] 00:00:00 00:00:00 SUMAN 784 [facility] i 2020-11-25 2020-11-25 Outpatient CHRISTA, [facility] [id number] [place] 00:00:00 00:00:00 SUMAN 872 [facility] i 2020-10-08 2020-10-08 Outpatient Meredith VERNON, [facility] [id number] Univers 09:10:00 09:10:00 AMAN [id number] [facility] 2020-10-08 2020-10-08 [facility] [id number] Univers 09:10:00 09:10:00 AMAN [facility] 2020-09-24 2020-09-24 Telephone Nurse, Sushila DIANA [id number] 00:00:00 00:00:00 Pob IZZY [id number] [facility] [id number] n [id number] [id number] 2020-09-10 2020-09-10 Outpatient [facility] [id number] Univers 08:40:00 08:40:00 [id number] [facility] 2020-09-10 2020-09-10 Outpatient Meredith VERNON [facility] [id number] Univers 08:40:00 08:40:00 AMAN [facility] 2020-09-04 2020-09-04 Urgent Provider, [facility] [id number] 12:06:47 12:26:47 Care [facility] [id number] Care [place] [id number] Professio [id number] nal [address] 2020-09-04 2020-09-04 Outpatient [facility] [id number] Univers 12:20:00 12:20:00 [id number] [facility] 2020-09-04 2020-09-04 Outpatient R VALDO [facility] [id number] Univers 12:20:00 12:20:00 ART [facility] 2019-12-19 2019-12-19 Letter ADALGISA Chow [id number] 00:00:00 00:00:00 (Out) Rob Garay IZZY [id number] HOSPITAL [id number] 2019-12-09 2019-12-09 Patient Doctor [facility] [id number] 00:00:00 00:00:00 Secure [facility] [id number] [place] [facility] [id number] [id number] 2019-11-21 2019-11-21 [facility] [id number] 00:00:00 00:00:00 [facility] [id number] Surgical [id number] Specialti [id number] es [address] [place] 2019-11-19 2019-11-19 [facility] [id number] 14:08:31 14:44:41 Visit Yaniv Simmons [place] [id number] Surgical [id number] Specialti [id number] es [address] [place] 2019-11-19 2019-11-19 [facility] [id number] [facility] 14:15:00 14:15:00 YANIV [facility] 2019-10-15 2019-10-15 Office [place] BCM [id number] 07:35:03 07:55:03 Visit , [place] AMBULATOR 350.1.13.21 C. Y [id number] [id number] 300 2019-10-15 2019-10-15 Office [place] BCM [id number] [facility] 07:35:03 07:55:03 Visit , [place] AMBULATOR [id number] [place] C. Y [id number] of [id number] [facility] sheri 300 e Results Test Description Test Time Test Comments Results Result Comments Source CORNEAL TOPOGRAPHY - OU - BOTH EYES 2019-10-15 15:30:30 Test Item Value Reference Range Interpretation Comme nts SimK Steep [place] (OS) (test code = degrees 042248) SimK [place] (OD) (test code = degrees 977023) Astigmatism (OS) (test code = 157228) Astigmatism (OD) (test code = 704262) RAMONITA (test code = RAMONITA) Right EyeFindings include normal observations. SimK [place] was 104 degrees. Astigmatism is 0.41. Left EyeFindings include normal observations. SimK [place] was 160 degrees. Astigmatism is 0.58. NotesSRI: OD:0.32; OS:0.19 [facility]
--- NOTE | 2021-12-19 09:59 | RAD REPORT ---
EXAM DESCRIPTION: RAD - Wrist Left 3 View - 12/19/2021 9:37 am CLINICAL HISTORY: Left wrist pain status post injury FINDINGS: An oblique lucency is present within the distal radius extending to the articular surface probably a minimally displaced fracture. Osteoporosis No dislocation is seen.
--- NOTE | 2021-12-19 10:08 | EDPHYS ---
Physician Documentation [facility] Name: Juliet Glasgow Age: 71 yrs Sex: Female : 1950 Arrival Date: 12/19/2021 Time: 08:17 Bed 11 Private MD: Darion Leung V ED Physician Paxton Hamm HPI: 12/19 08:34 This 71 yrs old Female presents to ER via Unassigned with complaints of Fall Injury, pm1 Wrist Injury. 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 Onset: pm1 The symptoms/episode began/occurred yesterday. Associated injuries: The patient sustained left wrist. Severity of symptoms: in the emergency department the symptoms are unchanged. The patient has not experienced similar symptoms in the past. The patient has not recently seen a physician. Patient was sitting in her car with her hand bag sitting on the left side of her vehicle. She attempted to step over her hand bag and it caused her to fall out of her car and she braced her fall with her left hand. She sustained injury to the left wrist. No headache, head injury, neck pain, LOC. Patient Abdulaziz wrap and iced her left wrist yesterday and did not come in due to . Pain and range of movement did not improve so she reported to ER today. Historical: - Allergies: 08:36 Codeine; ph - PMHx: 08:36 Hyperlipidemia; ph - Immunization history:: Adult Immunizations up to date. - Social history:: Smoking status: Patient denies any tobacco usage or history of. ROS: 08:34 Constitutional: Negative for fever, chills, and weight loss, Cardiovascular: Negative pm1 for chest pain, palpitations, and edema, Respiratory: Negative for shortness of breath, cough, wheezing, and pleuritic chest pain, Abdomen/GI: Negative for abdominal pain, nausea, vomiting, diarrhea, and constipation. 08:34 Skin: Negative for injury, rash, and discoloration, Neuro: Negative for headache, weakness, numbness, tingling, and seizure. 08:34 MS/extremity: Positive for pain, swelling, of the left wrist. 08:34 All other systems are negative. Exam: 08:34 Constitutional: This is a well developed, well nourished patient who is awake, alert, pm1 and in no acute distress. Head/Face: Normocephalic, atraumatic. 08:34 Eyes: Exam is negative for acute changes, Periorbital structures: appear normal, Extraocular movements: no acute changes, Conjunctiva: no acute changes, no injection. 08:34 ENT: Mouth: Lips: normal, moist, Oral mucosa: normal, pink and intact, moist. 08:34 Cardiovascular: Exam negative for acute changes, Rate: normal, Rhythm: regular, Pulses: no pulse deficits are appreciated. 08:34 Respiratory: Exam negative for acute changes, respiratory distress, shortness of breath. Vital Signs: 08:34 BP 127 / 53; Pulse 78; Resp 18; Temp 97.4; Pulse Ox 99% on R/A; Weight 77.11 kg; Height ph 5 ft. 3 in. (160.02 cm); 08:34 Body Mass Index 30.11 (77.11 kg, 160.02 cm) ph MDM: 08:33 ED course: Patient refused pain medications offered in the ER. Patient took tylenol and pm1 gabapentin prior to arrival and she feels that it sufficient at the moment. 08:56 Patient medically screened. pm1 10:04 Data reviewed: vital signs. Data interpreted: Pulse oximetry: on room air is 99 %. pm1 Interpretation: normal. Counseling: I had a detailed discussion with the patient and/or guardian regarding: the historical points, exam findings, and any diagnostic results supporting the discharge/admit diagnosis, radiology results, the need for outpatient follow up, for definitive care, a orthopedic surgeon, to return to the emergency department if symptoms worsen or persist or if there are any questions or concerns that arise at home. 12/19 08:33 Order name: Wrist Left (3 View) XRAY; Complete Time: 10:04 pm1 12/19 08:33 Order name: Sling; Complete Time: 10:26 pm1 12/19 10:04 Order name: Sugar Tong Forearm Splint; Complete Time: 10:26 pm1 Administered Medications: No medications were administered Disposition: 21:29 Co-signature as Attending Physician, Paxton ADLER was immediately available on-site ms3 in the Emergency Department for consultation in the care of the patient.. Disposition Summary: 12/19/21 10:07 Discharge Ordered Location: Home pm1 Problem: new pm1 Symptoms: have improved pm1 Condition: Stable pm1 Diagnosis - Closed minimally displaced fracture of distal left radius pm1 Followup: pm1 - With: Emergency Department - When: As needed - Reason: Worsening of condition Followup: pm1 - With: Private Physician - When: 2 - 3 days - Reason: Recheck today's complaints, Continuance of care, Re-evaluation by your physician Discharge Instructions: - Discharge Summary Sheet pm1 - Cast or Splint Care, Adult pm1 - Wrist Fracture Treated With Immobilization pm1 - How to Use a Sling pm1 Forms: - Medication Reconciliation Form pm1 - Thank You Letter pm1 - Antibiotic Education pm1 - Prescription Opioid Use pm1 Signatures: Dispatcher [employer] EDMS Juliet Garcia RN RN Isaiah Orona, [employer] pm1 Paxton Hamm DO DO ms3
--- NOTE | 2021-12-19 10:08 | ER ---
Nurse's Notes [facility] Name: Juliet Glasgow Age: 71 yrs Sex: Female : 1950 Arrival Date: 12/19/2021 Time: 08:17 Bed 11 Private MD: Darion Leung V Diagnosis: Closed minimally displaced fracture of distal left radius Presentation: 12/19 08:34 Chief complaint: Patient states: Fell yesterday [place], fell onto outstretched L hand, swelling and deformity noted, abrasion to L knee as well, denies other injury. Coronavirus screen: Vaccine status: Patient reports receiving the 2nd dose of the covid vaccine. Ebola Screen: No symptoms or risks identified at this time. Initial Sepsis Screen: Does the patient meet any 2 criteria? No. Patient's initial sepsis screen is negative. Does the patient have a suspected source of infection? No. Patient's initial sepsis screen is negative. Risk Assessment: Do you want to hurt yourself or someone else? Patient reports no desire to harm self or others. Onset of symptoms was December 19, 2021. 08:34 Method Of Arrival: Ambulatory ph 08:34 Acuity: WEI 4 ph Triage Assessment: 08:36 General: Appears in no apparent distress. Behavior is calm, cooperative, appropriate ph for age. Pain: Complains of pain in left wrist. Neuro: Level of Consciousness is awake, alert, obeys commands, Oriented to person, place, time, situation. Cardiovascular: Capillary refill < 3 seconds in bilateral fingers Patient's skin is warm and dry. Pulses are palpable in right radial artery and left radial artery. Respiratory: No deficits noted. Derm: Skin is healthy with good turgor, Skin is pink, warm \T\ dry. Musculoskeletal: Swelling present in left wrist. Injury Description: Abrasion sustained to left knee. Historical: - Allergies: 08:36 Codeine; ph - PMHx: 08:36 Hyperlipidemia; ph - Immunization history:: Adult Immunizations up to date. - Social history:: Smoking status: Patient denies any tobacco usage or history of. Screenin:33 Abuse screen: Denies threats or abuse. Denies injuries from another. Nutritional ph screening: No deficits noted. Tuberculosis screening: No symptoms or risk factors identified. Fall Risk None identified. Assessment: 10:32 General: Appears in no apparent distress. comfortable, Behavior is calm, cooperative, ph appropriate for age. Pain: Complains of pain in left wrist. Neuro: Level of Consciousness is awake, alert, obeys commands, Oriented to person, place, time, situation. Cardiovascular: No deficits noted. Derm: Skin is healthy with good turgor, Skin is pink, warm \T\ dry. Musculoskeletal: Circulation, motion, and sensation intact. Swelling present in left wrist. Injury Description: Abrasion sustained to left knee. Vital Signs: 08:34 BP 127 / 53; Pulse 78; Resp 18; Temp 97.4; Pulse Ox 99% on R/A; Weight 77.11 kg; Height ph 5 ft. 3 in. (160.02 cm); 08:34 Body Mass Index 30.11 (77.11 kg, 160.02 cm) ph ED Course: 08:17 Patient arrived in ED. mr 08:17 Darion Leung MD is Private Physician. mr 08:18 Paxton Hamm DO is Attending Physician. ms3 08:32 Isaiah Ortiz NP is PHCP. pm1 08:36 Triage completed. ph 08:37 Arm band placed on Patient placed in waiting room, Patient notified of wait time. X-ray ph ordered. 08:55 Ayla Nicole, BRIAN is Primary Nurse. ll1 09:37 X-ray completed. Pt transported back to ED lobby after imaging was completed. md1 10:29 Sling applied to left arm. mb7 10:33 Patient has correct armband on for positive identification. Side rails up X 1. ph 11:20 No provider procedures requiring assistance completed. Patient did not have IV access ph during this emergency room visit. Administered Medications: No medications were administered Outcome: 10:07 Discharge ordered by MD. pm1 11:20 Patient left the ED. ph 11:20 Discharged to home ambulatory, with significant other. ph 11:20 Condition: good 11:20 Discharge instructions given to patient, Instructed on discharge instructions, follow up and referral plans. Demonstrated understanding of instructions, follow-up care. Signatures: Dispatcher [employer] EDMI Louisa Osman mr Juliet Garcia RN RN ph Isaiah Ortiz NP IMPROVEMENT ADVISOR pm1 Isidra Aguilar md1 Ayla Nicole RN RN ll1 Paxton Hamm, DO DO ms3 Louisa Stein mb7 Corrections: (The following items were deleted from the chart) 09:38 09:38 In radiology for Wrist Left 3 View+RAD.RAD.BRZ. EDMS [email or web address]
[2021-12-19 11:26] VITALS: BP 127/53; TEMP 97.4; O2SAT 99
== END 2021-12-19 11:20 | disposition home or self-care (01) ==
LOC: ER 08:15
PROC: 2W3DX1Z Immobilization of Left Lower Arm using Splint (ICD-10-PCS; principal; 2021-12-19)
DX: S52.502A Unspecified fracture of the lower end of left radius, initial encounter for closed fracture (principal); W17.89XA Other fall from one level to another, initial encounter; E78.5 Hyperlipidemia, unspecified; Z88.5 Allergy status to narcotic agent
CPT/HCPCS: 99283